=== PATIENT | female | born 1940 | race Caucasian/White ===

== ENCOUNTER 2016-12-06 13:38 | Emergency (ER) | payer OTHER ==
[2016-12-06 13:49] VITALS: BP 152/72; PULSE 61; TEMP 97.6; BMI 32.3
--- NOTE | 2016-12-06 15:11 | PDOC ---
History of Present Illness - General Chief Complaint: Eye Problem Stated Complaint: RT EYE INJURY Time Seen by Provider: 12/06/16 14:45 History Source: Patient Exam Limitations: Language Barrier - History of Present Illness Initial Comments: 12/06/16 15:13 CC redness to lateral area of right eye; no pain, no itching, no vision changes x 4 days; no trauma reported Severity: mild Associated Symptoms: denies: chest pain, cough, diaphoresis, fever/chills, nausea/vomiting Past History - Past Medical History Allergies/Adverse Reactions: Allergies Allergy/AdvReac Type Severity Reaction Status Date / Time No Known Drug Allergies Allergy Verified 12/06/16 13:45 Home Medications: Ambulatory Orders Levothyroxine [Synthroid -] 50 mcg PO DAILY 04/20/12 Metoprolol Succinate [Toprol XL -] 50 mg PO HS 01/07/13 Alendronate Sodium [Fosamax] 10 mg PO DAILY 05/16/16 Atorvastatin Ca [Lipitor] 10 mg PO HS 05/16/16 Losartan/Hydrochlorothiazide [Losartan-Hctz 100-12.5 mg Tab] 1 each PO DAILY Montelukast Na [Singulair -] 10 mg PO HS 05/16/16 Pantoprazole Sodium [Protonix -] 40 mg PO DAILY #30 tablet.ec 08/11/16 Anemia: No Asthma: Yes Cancer: No Cardiac Disorders: No CVA: No COPD: No CHF: No Dementia: No Diabetes: No GI Disorders: Yes (GASTRITIS/GASTRIC ULCER, REFLUX) Disorders: Yes (UTI) HTN: Yes Hypercholesterolemia: Yes Liver Disease: No Seizures: No Thyroid Disease: Yes (HYPO) - Surgical History Abdominal Surgery: Yes (REPAIR OF UMBILICAL HERNIA) Appendectomy: No Cardiac Surgery: No Cholecystectomy: Yes Lung Surgery: No Neurologic Surgery: No Orthopedic Surgery: No - Psycho/Social/Smoking Cessation Hx Suicidal Ideation: No Smoking Status: No Smoking History: Never smoked Have you smoked in the past 12 months: No Number of Cigarettes Smoked Daily: 0 Hx Alcohol Use: No Drug/Substance Use Hx: No Substance Use Type: None Hx Substance Use Treatment: No Review of Systems - Review of Systems Constitutional: No: Chills, Fever HEENTM: No: Tearing, Recent change in vision, Double Vision, Cataracts Respiratory: No: Symptoms reported, Cough Cardiac (ROS): No: Symptoms Reported *Physical Exam - Vital Signs Last Vital Signs Temp Pulse Resp BP Pulse Ox 97.6 F 61 18 152/72 99 12/06/16 13:45 12/06/16 13:45 12/06/16 13:45 12/06/16 13:45 12/06/16 13:45 - Physical Exam General Appearance: Yes: Appropriately Dressed. No: Apparent Distress HEENT: positive: Other (small lateral right eye subconctival hemorrhage). negative: TMs Normal, Pharynx Normal Neck: positive: Trachea midline Medical Decision Making - Medical Decision Making 12/06/16 15:17 pt on no asa/ blood thinners; no ALEGRIA needed nown *DC/Admit/Observation/Transfer Diagnosis at time of Disposition: Subconjunctival hemorrhage Qualifiers: Laterality: right Qualified Code(s): H11.31 - Conjunctival hemorrhage, right eye - Discharge Dispostion Disposition: HOME Condition at time of disposition: Stable Admit: No - Referrals Referrals: Patric Acevedo MD [Primary Care Provider] - Luz Maria Fernandez MD [Staff Physician] - - Patient Instructions Additional Instructions: go see eye MD if pain or vision changes Print Language: WELSH
== END 2016-12-06 15:20 | disposition home or self-care (01) ==
LOC: JERFT 13:38
DX: H11.31 Conjunctival hemorrhage, right eye (principal); I10 Essential (primary) hypertension; E78.00 Pure hypercholesterolemia, unspecified; E03.9 Hypothyroidism, unspecified
CPT/HCPCS: 99281-25